=== PATIENT | male | born 1990 | race Caucasian/White ===

== ENCOUNTER 2018-12-06 14:29 | Emergency (ER) | payer OTHER, SELFPAY ==
[2018-12-06 14:39] VITALS: BP 156/96; PULSE 107; RESP 18; TEMP 36.3; O2SAT 100; BMI 28.8
--- NOTE | 2018-12-06 15:18 | ED.SKABFB ---
HPI - Skin/Abscess/Foreign Bdy <BRITNEY Daley - Last Filed: 12/06/18 15:30> General Chief complaint: Skin/Abscess/Foreign Body Stated complaint: L small toe poss infection Time Seen by Provider: 12/06/18 15:00 Source: patient and family Mode of arrival: ambulatory Limitations: no limitations History of Present Illness HPI narrative: The patient is a 28-year-old male nonsmoker with history of broken leg who presents with a chief complaint of a possible infection of his left small toe. He states that he had a bump on the base of his left 5th toe, which turned red and drained pus. He states he had something similar to this last month. He was not treated with antibiotics at this time. He states that the redness never went away, but it got much worse over the past few days. He denies any fevers nausea vomiting or diarrhea. He states that [place] He states he has full range of motion of his left toes. Related Data Previous Rx's Medication Instructions Recorded cephalexin 500 mg PO QID #40 cap 12/06/18 Allergies Allergy/AdvReac Type Severity Reaction Status Date / Time No Known Drug Allergies Allergy Verified 12/06/18 14:44 Review of Systems <BRITNEY Daley - Last Filed: 12/06/18 15:30> Review of Systems GENERAL: Denies chills, fatigue, malaise, fever, sweats. HEENT: Denies sinus pain, ear pain, sore throat, difficulty swallowing, dizziness. RESPIRATORY: Denies dyspnea, cough, wheezing, hemoptysis, sputum. CARDIOVASCULAR: Denies chest pain, palpitations, orthopnea, edema, GASTROINTESTINAL: Denies nausea, vomiting, abdominal pain, diarrhea, constipation, melena. : Denies dysuria, frequency, incontinence, hematuria, urinary retention. MUSCULOSKELETAL: denies weakness, joint pain, or bony pain SKIN: See HPI NEUROLOGIC: Denies weakness, headache, numbness, change in speech, confusion, seizures, incoordination. PSYCHIATRIC: No concerning psychosocial issues. 12 point review of systems is negative except for those stated above PFSH <BRITNEY Daley - Last Filed: 12/06/18 15:30> Social History Smoking Status: Never smoker Social History Smoking Status: Never smoker Exam <BRITNEY Daley - Last Filed: 12/06/18 15:30> Narrative Exam Narrative: GENERAL: This is a well-nourished, well-developed patient, no acute distress HEAD: Atraumatic. Normocephalic. No temporal or scalp tenderness. EYES: Pupils equal round and reactive. Extraocular motions intact. No scleral icterus. No injection or drainage. ENT: Nose without bleeding, purulent drainage or septal hematoma. Throat without erythema, tonsillar hypertrophy or exudate. Uvula midline. Airway patent. NECK: Trachea midline. No JVD or lymphadenopathy. Supple, nontender, no meningeal signs. CARDIOVASCULAR: Regular rate and rhythm RESPIRATORY: No cough. No increased respiratory effort. No accessory muscle use. EXTREMITIES: Full range of motion left toes. Capillary refill less than 2 seconds all toes left foot. Positive pedal pulses. BACK: Nontender without deformity or crepitance. No flank tenderness. NEURO: AOx3. SKIN: 1.5 cm of erythema at the base of the left 5th toe. 0.5 cm laceration overlying it. Draining purulence at discharge. Initial Vital Signs Initial Vital Signs: Vital Signs Temperature 97.4 F L 12/06/18 14:39 Pulse Rate 107 H 12/06/18 14:39 Respiratory Rate 18 12/06/18 14:39 Blood Pressure 156/96 H 12/06/18 14:39 Pulse Oximetry 100 12/06/18 14:39 <Claire Mabry DO - Last Filed: 12/09/18 23:46> Initial Vital Signs Initial Vital Signs: Vital Signs Temperature 97.4 F L 12/06/18 14:39 Pulse Rate 107 H 12/06/18 14:39 Respiratory Rate 18 12/06/18 14:39 Blood Pressure 156/96 H 12/06/18 14:39 Pulse Oximetry 100 12/06/18 14:39 Course <BRITNEY Daley - Last Filed: 12/06/18 15:30> Orders Ordered: ED Orders 12/06/18 15:15 Wound Culture and Gram Stain Stat Vital Signs - 8 hr 12/06/18 14:39 Temperature 97.4 F L Pulse Rate 107 H Respiratory Rate 18 Blood Pressure 156/96 H Pulse Oximetry 100 <DO Michael Aragon Filed: 12/09/18 23:46> Orders Ordered: ED Orders 12/06/18 15:15 Wound Culture and Gram Stain Stat Vital Signs - 8 hr 12/06/18 14:39 Temperature 97.4 F L Pulse Rate 107 H Respiratory Rate 18 Blood Pressure 156/96 H Pulse Oximetry 100 MDM - Skin/Abscess/Foreign Bdy <TONIA Daley-BC - Last Filed: 12/06/18 15:30> [facility] Narrative Medical decision making narrative: The patient is a 28-year-old male who presents with a possible infection on his left foot. His exam and history is consistent with an abscess that drained at home as well as overlying cellulitis. I took a wound culture. Thus I will treat him with Keflex. Discussed at length return precautions of fever, vomiting, signs of systemic illness. Encouraged patient to follow up with primary care provider. Patient has no questions or concerns upon discharge. Discharge Plan Departure Patient Disposition: Home Clinical Impression: Cellulitis and abscess of foot Discharge Date/Time: 12/06/18 15:31 Interventions: ED Discharge Assessment Last Done: 12/06/18 15:30 Instructions: DI for Cellulitis -- Adult, DI for Skin Abscess Activity Restrictions/Additional Instructions: I am starting you on an antibiotic for infection. Please follow up with primary care provider. We have sent off a wound culture, which should be done in 48-72 hours. Come back to the emergency department for any acute concerns. Monitor for fever, vomiting, diarrhea or signs of systemic illness. Prescriptions: New cephalexin 500 mg capsule 500 mg PO QID Qty: 40 RF: 0 Referrals: [facility] [Provider Group] <Claire Mabry DO - Last Filed: 12/09/18 23:46> Cosign ED Attending Cosjuanature Attestation: I was immediately available in the department for consultation. Documentation has been reviewed. I agree with assessment and plan.
== END 2018-12-06 15:31 | disposition home or self-care (01) ==
PROVIDERS: Emergency Provider Nurse Practitioner Family
DX: L03.032 Cellulitis of left toe (principal)
CPT/HCPCS: 87070; 87075; 87077; 87147; 87186; 87205; 99282; 99283